=== PATIENT | female | born 1955 | race American Indian/Alaskan Native ===

== ENCOUNTER 2016-10-03 16:10 | Emergency (ER) | payer MEDICARE ==
[2016-10-03 16:53] VITALS: BP 155/94
[2016-10-03] MEDS ORDERED: DECADRON IM ONE (19:38)
[2016-10-03] MEDS ORDERED: BENADRYL IM ONE (19:38)
--- NOTE | 2016-10-03 20:50 | Emergency Department Report ---
Entered by LORELEI VEE, acting as scribe for OSCAR DEMPSEY PA. - General Chief complaint: Skin Rash Stated complaint: RASH Time Seen by Provider: 10/03/16 18:17 Source: patient Mode of arrival: Ambulatory Limitations: No Limitations - History of Present Illness Initial comments: 61 y/o female with a PMHx of arthritis, HTN, and lupus presents to the ED c/o a rash to neck and torso of body that began 3 days ago. Patient reports associated itching, but she denies chest pain, SOB,cough, wheezing, sore throat , nausea, vomiting, fever, and chills. Rates associated itching pain an 8/10 in severity, which she describes as sharp in quality. Patient denies new medication , changes in soap and detergent. NKDA. Denies any fever or chills. MD complaint: rash Onset/Timin -: days(s) Location: neck, chest, back, LUE (shoulder), RUE (shoulder) Severity: severe Severity scale (0 -10): 8 Quality: sharp Consistency: constant Improves with: none Worsens with: none Context: none Associated symptoms: denies other symptoms, itching Treatments Prior to Arrival: none - Related Data Home Medications Medication Instructions Recorded Confirmed Last Taken Abatacept [Orencia] 125 mg IV QMONTH 05/05/13 02/15/14 04/14/13 Cholecalciferol (Vitamin D3) 400 unit PO DAILY 05/05/13 02/15/14 05/04/13 [Vitamin D] Colchicine [Colcrys] 0.6 mg PO DAILY 05/05/13 02/15/14 05/04/13 Cyclobenzaprine HCl [Flexeril 5 MG 5 mg PO DAILY 05/05/13 02/15/14 05/04/13 TAB] Ferrous Sulfate [Ferrous Sulfate 220 mg PO DAILY 05/05/13 02/15/14 05/04/13 Oral Liq 220 Mg/5 Ml] Folic Acid 0.4 mg PO QDAY 05/05/13 02/15/14 05/04/13 HYDROcodone/ACETAMINOPHEN 1 tab PO QAM&QHS PRN 05/05/13 02/15/14 05/04/13 [Hydrocodon-Acetaminophn 10-325] Prednisone [Prednisone] 10 mg PO BID 05/05/13 02/15/14 05/04/13 amLODIPine [Norvasc] 10 mg PO DAILY 05/05/13 02/15/14 05/04/13 Previous Rx's Medication Instructions Recorded Last Taken Type HYDROcodone/APAP 5-325 [[place] 1 - 2 each PO Q4H PRN #30 tablet 05/05/13 Unknown Rx 5/325 mg] Ibuprofen [Motrin 800 MG tab] 800 mg PO TID #30 tablet 12/31/13 Unknown Rx Tramadol HCl [traMADol] 50 mg PO Q6H PRN #14 tablet 12/31/13 Unknown Rx Hyoscyamine Subl [Levsin Sl] 0.125 mg SL Q6HR PRN #14 tablet 02/15/14 Unknown Rx Omeprazole Magnesium [Prilosec Otc] 20 mg PO QDAY #20 tablet.dr 02/15/14 Unknown Rx Docusate Sodium [Colace] 100 mg PO BID #30 capsule 04/19/14 Unknown Rx HYDROcodone/APAP 10-325 [[place] 1 each PO Q6HR PRN #20 tablet 04/19/14 Unknown Rx 10-325 mg TAB] Levofloxacin [Levaquin] 750 mg PO QDAY #7 tablet 04/19/14 Unknown Rx Promethazine [Phenergan] 25 mg PO Q6H PRN #30 tablet 04/19/14 Unknown Rx diphenhydrAMINE [Benadryl CAP] 50 mg PO Q8HR PRN #15 capsule 10/03/16 Unknown Rx predniSONE [Deltasone] 50 mg PO QDAY #5 tab 10/03/16 Unknown Rx Allergies Allergy/AdvReac Type Severity Reaction Status Date / Time acetaminophen AdvReac Vomiting Verified 05/05/13 12:39 [From Darvocet-N 100] peanut AdvReac Rash Verified 10/03/16 16:53 propoxyphene napsylate AdvReac Vomiting Verified 05/05/13 12:39 [From Darvocet-N 100] SILK TAPE AdvReac Unknown Uncoded 05/05/13 12:43 Abscess Boil HPI - HPI Chief Complaint: Skin Rash Stated Complaint: RASH Time Seen by Provider: 10/03/16 18:17 Duration: 3 Days Location: Lower Extremity (shoulder) Severity: Severe (11/22) History: Yes Pain, No Fever, No Purulent Drainage, No Numbness, No Foreign Body , No Previous History, No Insect Bite Home Medications: Home Medications Medication Instructions Recorded Confirmed Last Taken Abatacept [Orencia] 125 mg IV QMONTH 05/05/13 02/15/14 04/14/13 Cholecalciferol (Vitamin D3) 400 unit PO DAILY 05/05/13 02/15/14 05/04/13 [Vitamin D] Colchicine [Colcrys] 0.6 mg PO DAILY 05/05/13 02/15/14 05/04/13 Cyclobenzaprine HCl [Flexeril 5 MG 5 mg PO DAILY 05/05/13 02/15/14 05/04/13 TAB] Ferrous Sulfate [Ferrous Sulfate 220 mg PO DAILY 05/05/13 02/15/14 05/04/13 Oral Liq 220 Mg/5 Ml] Folic Acid 0.4 mg PO QDAY 05/05/13 02/15/14 05/04/13 HYDROcodone/ACETAMINOPHEN 1 tab PO QAM&QHS PRN 05/05/13 02/15/14 05/04/13 [Hydrocodon-Acetaminophn 10-325] Prednisone [Prednisone] 10 mg PO BID 05/05/13 02/15/14 05/04/13 amLODIPine [Norvasc] 10 mg PO DAILY 05/05/13 02/15/14 05/04/13 Previous Rx's Medication Instructions Recorded Last Taken Type HYDROcodone/APAP 5-325 [[place] 1 - 2 each PO Q4H PRN #30 tablet 05/05/13 Unknown Rx 5/325 mg] Ibuprofen [Motrin 800 MG tab] 800 mg PO TID #30 tablet 12/31/13 Unknown Rx Tramadol HCl [traMADol] 50 mg PO Q6H PRN #14 tablet 12/31/13 Unknown Rx Hyoscyamine Subl [Levsin Sl] 0.125 mg SL Q6HR PRN #14 tablet 02/15/14 Unknown Rx Omeprazole Magnesium [Prilosec Otc] 20 mg PO QDAY #20 tablet.dr 02/15/14 Unknown Rx Docusate Sodium [Colace] 100 mg PO BID #30 capsule 04/19/14 Unknown Rx HYDROcodone/APAP 10-325 [[place] 1 each PO Q6HR PRN #20 tablet 04/19/14 Unknown Rx 10-325 mg TAB] Levofloxacin [Levaquin] 750 mg PO QDAY #7 tablet 04/19/14 Unknown Rx Promethazine [Phenergan] 25 mg PO Q6H PRN #30 tablet 04/19/14 Unknown Rx diphenhydrAMINE [Benadryl CAP] 50 mg PO Q8HR PRN #15 capsule 10/03/16 Unknown Rx predniSONE [Deltasone] 50 mg PO QDAY #5 tab 10/03/16 Unknown Rx Allergies/Adverse Reactions: Allergies Allergy/AdvReac Type Severity Reaction Status Date / Time acetaminophen AdvReac Vomiting Verified 05/05/13 12:39 [From Darvocet-N 100] peanut AdvReac Rash Verified 10/03/16 16:53 propoxyphene napsylate AdvReac Vomiting Verified 05/05/13 12:39 [From Darvocet-N 100] SILK TAPE AdvReac Unknown Uncoded 05/05/13 12:43 ED Review of Systems Comment: All other systems reviewed and negative Constitutional: no symptoms reported. denies: chills, fever ENT: denies: throat pain Respiratory: denies: cough, orthopnea, shortness of breath, SOB with exertion, SOB at rest, stridor, wheezing Cardiovascular: denies: chest pain, palpitations, dyspnea on exertion, orthopnea , edema, syncope Gastrointestinal: denies: nausea, vomiting, diarrhea, constipation, hematochezia Musculoskeletal: denies: back pain, joint swelling, arthralgia, myalgia Skin: rash (neck, back, bilateral shoulders, and torso with associated itching) , pruritus Neurological: denies: headache, weakness, numbness, paresthesias, confusion, abnormal gait, vertigo ED Past Medical Hx - Past Medical History Previous Medical History?: Yes Hx Hypertension: Yes (SINCE 2006) Hx Arthritis: Yes (rheumatoid, osteo) Additional medical history: Gout, fibromyalgia, neuropathy, lupus - Surgical History Past Surgical History?: Yes Additional Surgical History: L & R knee replacement, hyst, right shoulder replacment - Family History Family history: hypertension - Social History Smoking Status: Never Smoker Substance Use Type: None - Medications Home Medications: Home Medications Medication Instructions Recorded Confirmed Last Taken Type Abatacept [Orencia] 125 mg IV QMONTH 05/05/13 02/15/14 04/14/13 History Cholecalciferol (Vitamin D3) 400 unit PO DAILY 05/05/13 02/15/14 05/04/13 History [Vitamin D] Colchicine [Colcrys] 0.6 mg PO DAILY 05/05/13 02/15/14 05/04/13 History Cyclobenzaprine HCl [Flexeril 5 MG 5 mg PO DAILY 05/05/13 02/15/14 05/04/13 History TAB] Ferrous Sulfate [Ferrous Sulfate 220 mg PO DAILY 05/05/13 02/15/14 05/04/13 History Oral Liq 220 Mg/5 Ml] Folic Acid 0.4 mg PO QDAY 05/05/13 02/15/14 05/04/13 History HYDROcodone/ACETAMINOPHEN 1 tab PO QAM&QHS PRN 05/05/13 02/15/14 05/04/13 History [Hydrocodon-Acetaminophn 10-325] HYDROcodone/APAP 5-325 [[place] 1 - 2 each PO Q4H PRN #30 tablet 05/05/13 Unknown Rx 5/325 mg] Prednisone [Prednisone] 10 mg PO BID 05/05/13 02/15/14 05/04/13 History amLODIPine [Norvasc] 10 mg PO DAILY 05/05/13 02/15/14 05/04/13 History Ibuprofen [Motrin 800 MG tab] 800 mg PO TID #30 tablet 12/31/13 02/15/14 Unknown Rx Tramadol HCl [traMADol] 50 mg PO Q6H PRN #14 tablet 12/31/13 02/15/14 Unknown Rx Hyoscyamine Subl [Levsin Sl] 0.125 mg SL Q6HR PRN #14 tablet 02/15/14 Unknown Rx Omeprazole Magnesium [Prilosec Otc] 20 mg PO QDAY #20 tablet 02/15/14 Unknown Rx Docusate Sodium [Colace] 100 mg PO BID #30 capsule 04/19/14 Unknown Rx HYDROcodone/APAP 10-325 [[place] 1 each PO Q6HR PRN #20 tablet 04/19/14 Unknown Rx 10-325 mg TAB] Levofloxacin [Levaquin] 750 mg PO QDAY #7 tablet 04/19/14 Unknown Rx Promethazine [Phenergan] 25 mg PO Q6H PRN #30 tablet 04/19/14 Unknown Rx diphenhydrAMINE [Benadryl CAP] 50 mg PO Q8HR PRN #15 capsule 10/03/16 Unknown Rx predniSONE [Deltasone] 50 mg PO QDAY #5 tab 10/03/16 Unknown Rx ED Physical Exam - General Limitations: No Limitations General appearance: alert, in no apparent distress - Head Head exam: Present: atraumatic, normocephalic, other (no facial swelling) - Eye Eye exam: Present: normal appearance, PERRL, EOMI. Absent: conjunctival injection, periorbital swelling, periorbital tenderness Pupils: Present: normal accommodation - ENT ENT exam: Present: normal exam, normal orophraynx, mucous membranes moist, TM's normal bilaterally, normal external ear exam - Expanded ENT Exam Expanded Ear exam: Present: normal external inspection Mouth exam: Present: normal external inspection (Uvula is midline and oral airway is patent.), tongue normal. Absent: drooling, trismus, muffled voice, tongue elevation, laceration Teeth exam: Present: normal inspection Throat exam: Positive: normal inspection. Negative: tonsillar erythema, tonsillomegaly, tonsillar exudate, R peritonsillar mass, L peritonsillar mass - Neck Neck exam: Present: normal inspection, full ROM. Absent: tenderness, meningismus, lymphadenopathy - Expanded Neck Exam Expanded Neck exam: Absent: tenderness, midline deformity, anterior neck swelling, tracheal deviation - Respiratory Respiratory exam: Present: normal lung sounds bilaterally. Absent: respiratory distress, wheezes, rales, rhonchi, stridor, chest wall tenderness, accessory muscle use, decreased breath sounds - Cardiovascular Cardiovascular Exam: Present: regular rate, normal rhythm, normal heart sounds - GI/Abdominal GI/Abdominal exam: Present: soft, normal bowel sounds. Absent: distended - Extremities Exam Extremities exam: Present: normal inspection, full ROM, normal capillary refill , other (No CCE). Absent: tenderness, pedal edema, joint swelling, calf tenderness - Back Exam Back exam: Present: normal inspection, full ROM. Absent: tenderness, CVA tenderness (R), CVA tenderness (L), muscle spasm, paraspinal tenderness, vertebral tenderness, rash noted - Neurological Exam Neurological exam: Present: alert, oriented X3, normal gait, reflexes normal. Absent: motor sensory deficit - Psychiatric Psychiatric exam: Present: normal affect, normal mood - Skin Skin exam: Present: warm, dry, intact, rash (erythematous flat rash presents to left side chest wall with papules present to some areas; sparsely scattered rash present to back, anterior neck, body, thorax, and upper shoulder blades bilaterally), erythema, urticaria. Absent: cyanosis, abrasion, ecchymosis - Expanded Skin Exam Expanded Type of lesion: Present: rash Distribution of rash: neck, thorax, chest, back, RUE, LUE Description of rash: Present: erythematous, papular. Absent: tenderness, swelling, vesicular, blisters, crusting, fluctuant, indurated ED Course Vital Signs 10/03/16 10/03/16 16:47 20:40 Temperature 98.1 F Pulse Rate 98 H Respiratory 18 Rate Blood Pressure 155/94 O2 Sat by Pulse 99 Oximetry Vital Signs 10/03/16 10/03/16 16:47 20:40 Temperature 98.1 F Pulse Rate 98 H Respiratory 18 Rate Blood Pressure 155/94 O2 Sat by Pulse 99 Oximetry - Reevaluation(s) Reevaluation #1: 10/03/16 20:43 Patient stable after Benadryl and Decadron. Itching and rash subsided. ED Medical Decision Making - Medical Decision Making ED course: Patient will contact dermatitis from unknown source. Has rash with itching and no respiratory symptoms. Patient was given Benadryl 50 mg IM and Decadron 10 mg IM and emergency room and discharged home with family with prescription for Medrol Dosepak and Benadryl. Follow-up with maintenance engineer, she voiced understanding. ED Disposition Clinical Impression: Pruritic rash Contact dermatitis Qualifiers: Contact dermatitis type: unspecified Contact dermatitis trigger: unspecified trigger Qualified Code(s): L25.9 - Unspecified contact dermatitis, unspecified cause Disposition: - TO HOME OR SELFCARE Is pt being admited?: No Does the pt Need Aspirin: No Condition: Stable Instructions: Contact Dermatitis (ED), Itchy Skin (ED) Additional Instructions: Please keep affected areas clean and dry Follow-up with maintenance engineer in [address] heavy machinery while taking Benadryl as this medication will cause drowsiness Prescriptions: diphenhydrAMINE [Benadryl CAP] 50 mg PO Q8HR PRN #15 capsule PRN Reason: Itching predniSONE [Deltasone] 50 mg PO QDAY #5 tab Referrals: JENARO CHAMORRO MD [Staff Physician] - 3-5 Days Forms: Accompanied Note, Work/School Release Form(ED) This documentation as recorded by the NANDA guadarrama JASMINE,accurately reflects the service I personally performed and the decisions made by me,OSCAR DEMPSEY PA.
== END 2016-10-03 20:59 | disposition home or self-care (01) ==
LOC: ED 16:10
DX: L25.9 Unspecified contact dermatitis, unspecified cause (principal); R21 Rash and other nonspecific skin eruption; I10 Essential (primary) hypertension
CPT/HCPCS: 96372; 99282; J1100; J1200

== ENCOUNTER 2016-12-31 16:14 | Emergency (ER) | payer MEDICARE | END 2016-12-31 20:52 | disposition left against medical advice (07) | LOC: ED 16:14 | DX: R60.9 Edema, unspecified (principal); Z53.21 Procedure and treatment not carried out due to patient leaving prior to being seen by health care provider ==

== ENCOUNTER 2016-12-31 16:15 | Emergency (ER) | payer MEDICARE ==
[2016-12-31 16:49] VITALS: BP 166/92
== END 2016-12-31 20:50 | disposition left against medical advice (07) ==
LOC: ED 16:15
DX: R60.0 Localized edema (principal); Z53.21 Procedure and treatment not carried out due to patient leaving prior to being seen by health care provider

== ENCOUNTER 2021-12-22 09:43 | Outpatient (CLI) | payer MEDICARE ==
--- NOTE | 2021-12-22 13:16 | XRay Report ---
CERVICAL SPINE 5 VIEWS INDICATION: M54.2 CERVICALGIA. COMPARISON: None. IMPRESSION: There is 3 mm anterolisthesis of C4 with respect to C5. The remaining cervical vertebra are normal in alignment. Mild to moderate discogenic DJD and facet arthropathy are identified at all levels. C6-7 appears to be the most affected level. The neural foramen appear patent on the oblique images. No acute osseous or soft tissue abnormality. BILATERAL HIPS WITH PELVIS, 3 VIEWS INDICATION: M54.2 CERVICALGIA. COMPARISON: None. IMPRESSION: No acute osseous or soft tissue abnormality. Moderate to severe osteoarthritic change s are identified at both hips. No evidence for osteonecrosis. Signer Name: Mauro Angela Jr, MD Signed: 12/22/2021 1:11 PM Workstation Name: [id number]
== END 2021-12-22 09:44 | disposition home or self-care (01) ==
LOC: XRAY 09:43
PROVIDERS: ATTEND Physical Medicine & Rehabilitation
DX: M17.0 Bilateral primary osteoarthritis of knee (principal); M43.12 Spondylolisthesis, cervical region
CPT/HCPCS: 72050; 73521